=== PATIENT | male | born 2000 | race Caucasian/White ===

== ENCOUNTER → 2019-02-13 | Outpatient (CLI) | payer OTHER ==
[2019-02-13 17:56] LABS: BLOOD UREA NITROGEN 12 MG/DL (7-18); CALCIUM LEVEL 9.1 MG/DL (8.5-10.1); CARBON DIOXIDE LEVEL 33 MEQ/L (21-32); CHLORIDE LEVEL 102 MEQ/L (98-107); CREATININE FOR GFR 0.98 MG/DL (0.70-1.30); GLUCOSE, FASTING 112 MG/DL (70-100); POTASSIUM SERUM 3.8 MEQ/L (3.5-5.1); SODIUM LEVEL 140 MEQ/L (136-145)
[2019-02-13 18:01] LABS: HEMATOCRIT 42.1 % (42.0-52.0); HEMOGLOBIN 12.7 g/dl (13.5-17.5); MEAN CORPUSCULAR HEMOGLOBIN 20.3 pg (27.0-33.0); MEAN CORPUSCULAR HGB CONC 30.2 g/dl (32.0-36.5); MEAN CORPUSCULAR VOLUME 67.4 fl (80.0-96.0); PLATELET COUNT, AUTOMATED 288 10^3/uL (150-450); RED BLOOD COUNT 6.25 10^6/uL (4.30-6.10); WHITE BLOOD COUNT 4.8 10^3/uL (4.0-10.0)
[2019-02-13 18:13] LABS: APPEARANCE, URINE CLEAR (CLEAR); BACTERIA, URINE AUTO NEGATIVE (NEGATIVE); BILIRUBIN, URINE AUTO NEGATIVE (NEGATIVE); BLOOD, URINE BLOOD 1+ (NEGATIVE); COLOR, URINE STRAW (YELLOW); GLUCOSE, URINE (UA) AUTO NEGATIVE (NEGATIVE); KETONE, URINE AUTO NEGATIVE (NEGATIVE); LEUKOCYTE ESTERASE, URINE AUTO NEGATIVE (NEGATIVE); NITRITE, URINE AUTO NEGATIVE (NEGATIVE); PROTEIN, URINE AUTO NEGATIVE (NEGATIVE); RBC, URINE AUTO 1 /HPF (0-3); SPECIFIC GRAVITY URINE AUTO 1.003 (1.002-1.035); SQUAMOUS EPITHELIAL CELL UR AU 0 /HPF (0-6); UROBILINOGEN, URINE AUTO 0.2 mg/dL (0.0-2.0); WBC, URINE AUTO 0 /HPF (0-3)
[2019-02-13 18:14] LABS: INR 1.18; PROTHROMBIN TIME 14.7 SECONDS (11.8-14.0)
[2019-02-13 18:15] LABS: PARTIAL THROMBOPLASTIN TIME 32.3 SECONDS (25.0-38.4)
== END ==
LOC: M LAB 16:05
PROVIDERS: ATTEND Nurse Practitioner Women's Health
DX: Z01.818 Encounter for other preprocedural examination (principal); N47.1 Phimosis

== ENCOUNTER 2019-02-17 11:04 | Day surgery (SDC) | payer OTHER ==
[~2019-02-17] VITALS: Ht 177.8 cm; Wt 62.1 kg
[~2019-02-17 11:04] MED LIST: LR 1,000 ML IV ONE
[2019-02-17] MEDS ORDERED: CIPROFLOXACIN/D5W 400 MG/200 ML BAG (J0744) As Ordered ONE (11:24)
[2019-02-17] MEDS ORDERED: CIPROFLOXACIN 400 MG in APPROPRIATE DILUENT 1 EA IV ONE (12:00)
[2019-02-17] MEDS ORDERED: dexameTHASONE 4 MG/ML 1ML VIAL (J1100) As Ordered ONE (12:05)
[2019-02-17] MEDS ORDERED: PROPOFOL 200 MG/20 ML VIAL As Ordered ONE (12:05)
[2019-02-17] MEDS ORDERED: MIDAZOLAM INJ 2 MG/2 ML VIAL (J2250) As Ordered ONE (12:05)
[2019-02-17] MEDS ORDERED: ONDANSETRON 4MG/2ML VIAL (J2405) As Ordered ONE (12:05)
[2019-02-17] MEDS ORDERED: fentaNYL 100 MCG/2 ML INJECTION (J3010) As Ordered ONE ×2 (12:05→16:41)
[2019-02-17] MEDS ORDERED: LIDOCAINE 2% INJ 100 MG/5 ML SDV (FOR ANES.) As Ordered ONE (12:07)
[2019-02-17] MEDS ORDERED: BACITRACIN OINT 30GM As Ordered ONE (13:51)
[2019-02-17] MEDS: fentaNYL 100 MCG/2 ML INJECTION (J3010) IV PRN ×4 (16:45→17:00)
[2019-02-17] MEDS: PERCOCET 5MG/325MG TAB PO PRN ×5 (16:45→17:20)
[2019-02-17] MEDS ORDERED: LR 1,000 ML IV SCH (17:00)
[2019-02-17] MEDS ORDERED: PERCOCET 5MG/325MG TAB PO PRN (17:00)
[2019-02-17 18:25] VITALS: BP 130/74
--- NOTE | 2019-02-18 08:21 | RO ---
DATE OF PROCEDURE: 02/17/2019 PREPROCEDURE DIAGNOSIS: Phimosis. POSTPROCEDURE DIAGNOSIS: Phimosis. PROCEDURE: Circumcision. SURGEON: Ricardo Larson MD METAPHYSICIST: None. ANESTHESIA: General. OPERATIVE INDICATIONS: This is a 18-year-old male who has general phimosis and has had some difficulty retracting his foreskin recently. He was brought to the operating room today for the above-listed procedure. DESCRIPTION OF PROCEDURE: The patient was brought to the operating room and general anesthesia induced. Prophylactic antibiotics were infused. He was then placed in the supine position and prepped and draped in the usual sterile fashion. At this point, circumcising incisions were made at the level of the coronal sulcus with the foreskin pulled over the glans and then also at the level of the coronal sulcus with the foreskin retracted proximally. All the skin between the two circumcising incisions was then removed using electrocautery. Hemostasis was then obtained with electrocautery. Once that was done, the skin of the shaft was then reapproximated to the glans using interrupted #3-0 chromic suture. Once that was done, dressings were applied including a Julian and then a Coban dressing. This marked conclusion of procedure. The patient was then awakened from anesthesia and transferred to recovery room in stable condition. ESTIMATED BLOOD LOSS: 20 mL. COMPLICATIONS: None. SPECIMENS: Foreskin. PLAN: The patient will keep his dressings on for 2 days, and then remove them in the shower. He will followup in the clinic in a few weeks for a postoperative visit. HERMINIO
== END 2019-02-17 18:35 | disposition home or self-care (01) ==
LOC: M SDC 11:04 → EDUNIT# 13:45 → M SDC 18:35
PROVIDERS: ATTEND Urology
DX: N47.1 Phimosis (principal); Z88.0 Allergy status to penicillin
CPT/HCPCS: 54161; 88304; J0744; J1100; J2250; J2405; J3010

== ENCOUNTER → 2019-04-23 | Outpatient (CLI) | payer OTHER ==
--- NOTE | 2019-04-23 09:25 | REP ---
Clinical: Enlarged physical examination. Technique: Real time moore scale and color evaluation using linear high frequency transducer. Findings: The thyroid gland is relatively normal in contour, size, and overall parenchymal echo texture. The isthmus measures 2.4 mm in width. The left lobe is normal and measures 4.4 x 1.6 x 0.8 cm. The right lobe measures 5.2 x 2.3 x 1.0 cm and includes 5 x 2 x 4 mm upper pole and 4 x 2 x 3 mm lower pole cysts with small mural nodules. Impression: Relatively normal thyroid gland. Two small nonspecific and likely incidental cysts noted in the right lobe. Electronically Signed by Slava Espitia MD 04/23/2019 09:17 A
== END ==
LOC: M RAD 08:55
PROVIDERS: ATTEND Physician Assistant
DX: E04.9 Nontoxic goiter, unspecified (principal)

== ENCOUNTER → 2019-08-18 | Outpatient (CLI) | payer OTHER ==
[2019-08-18 10:58] LABS: FREE THYROXINE INDEX 3.3 % (1.4-3.8); THYROID STIMULATING HORMONE 1.63 uIU/ML (0.463-3.98); THYROXINE (T4) 9.9 UG/DL (6.0-11.6)
== END ==
LOC: M LAB 09:58
PROVIDERS: ATTEND Physician Assistant
DX: E04.9 Nontoxic goiter, unspecified (principal); R94.6 Abnormal results of thyroid function studies

== ENCOUNTER → 2021-02-07 | Outpatient (CLI) | payer OTHER ==
--- NOTE | 2021-02-07 18:32 | REP ---
INDICATION: GOITER. COMPARISON: 04/23/2019. TECHNIQUE: Real-time sonographic evaluation of thyroid performed. FINDINGS: Right lobe of the thyroid measures 4.5 x 2.1 x 1.0 cm and left lobe 4.5 x 1.8 x 1.0 cm. A 3 mm cyst is seen in the mid right lobe and there is a 2 mm cyst in the right lower pole. No other cystic or solid nodule is seen. IMPRESSION: Both lobes of the thyroid are symmetrical and not significantly enlarged. Two subcentimeter cysts are seen in the right lobe. <Electronically signed by Arnaud Simms > 02/07/21 [id number]
== END ==
LOC: M RAD 15:16
PROVIDERS: ATTEND Nurse Practitioner
DX: E04.9 Nontoxic goiter, unspecified (principal)

== ENCOUNTER → 2022-10-25 | Outpatient (CLI) | payer OTHER | LOC: M RAD 13:14 | PROVIDERS: ATTEND Family Medicine | DX: E04.9 Nontoxic goiter, unspecified (principal) ==

== ENCOUNTER → 2023-06-10 | Outpatient (CLI) | payer OTHER | LOC: M WUC 11:26 | PROVIDERS: ATTEND Physician Assistant | DX: Z00.00 Encounter for general adult medical examination without abnormal findings (principal) ==

== ENCOUNTER 2023-09-30 07:04 | Day surgery (SDC) | payer OTHER ==
[~2023-09-30] VITALS: Ht 177.8 cm; Wt 73.9 kg
[~2023-09-30 07:04] MED LIST changes: +FERR32TA PO; -LR 1,000 ML IV ONE
[2023-09-30] MEDS ORDERED: LIDOCAINE 2% 100MG/5ML SDV (FOR ANES.) As Ordered ONE (07:19)
[2023-09-30] MEDS ORDERED: fentaNYL 100 MCG/2 ML INJECTION As Ordered ONE (07:19)
[2023-09-30] MEDS ORDERED: propofoL 200 MG/20 ML VIAL As Ordered ONE (07:19)
[2023-09-30] MEDS: NS 1,000 ML IV ONE (07:40)
[2023-09-30 08:33] VITALS: TEMP 96.9
[2023-09-30 08:55] VITALS: BP 116/81; O2SAT 100
== END 2023-09-30 09:03 | disposition home or self-care (01) ==
LOC: M OPP 07:04
PROVIDERS: ATTEND Internal Medicine Gastroenterology
DX: D50.9 Iron deficiency anemia, unspecified (principal); K92.2 Gastrointestinal hemorrhage, unspecified; K29.70 Gastritis, unspecified, without bleeding; B96.81 Helicobacter pylori [H. pylori] as the cause of diseases classified elsewhere; K22.70 Barrett's esophagus without dysplasia; K21.00 Gastro-esophageal reflux disease with esophagitis, without bleeding; Z88.0 Allergy status to penicillin
CPT/HCPCS: 43239; 45378; 88305; J3010

== ENCOUNTER → 2023-11-11 | Outpatient (REF) | payer OTHER | LOC: M LAB REF 14:58 | PROVIDERS: ATTEND Internal Medicine Gastroenterology | DX: A04.8 Other specified bacterial intestinal infections (principal) ==

== ENCOUNTER → 2023-11-18 | Outpatient (CLI) | payer OTHER | LOC: M RAD 07:46 | PROVIDERS: ATTEND Family Medicine | DX: E04.2 Nontoxic multinodular goiter (principal) ==